=== PATIENT | female | born 1955 | race Caucasian/White ===

== ENCOUNTER 2022-01-02 15:22 | Emergency (ER) | payer OTHER ==
[~2022-01-02] VITALS: Ht 162.6 cm; Wt 62.0 kg
[2022-01-02] MEDS ORDERED: ONDANSETRON HCL 4MG/2ML INJ IV STA (15:51)
[2022-01-02] MEDS ORDERED: MORPHINE SULFATE 4 MG/ML CPJ (NOT FOR IM USE) IV STA (15:51)
[2022-01-02] MEDS ORDERED: SODIUM CHLORIDE 0.9% 1,000 ML IV ONE (16:00)
[2022-01-02] MEDS ORDERED: KETOROLAC 15MG/ML VIAL IV ONE (16:30)
[2022-01-02] MEDS ORDERED: ETOMIDATE 2MG/ML 10ML VIAL IV ONE (17:00)
[2022-01-02] MEDS ORDERED: MORPHINE SULFATE 4 MG/ML CPJ (NOT FOR IM USE) IV ONE (17:00)
[2022-01-02 17:05] LABS: CHLORIDE 103 mEq/L (98-107)
[2022-01-02 17:08] LABS: INR 0.9; PARTIAL THROMBOPLASTIN TIME < 21.0 sec (23.4-31.0); PROTHROMBIN TIME 9.7 sec (9.6-11.0)
[2022-01-02 19:04] LABS: HEMOGLOBIN. 12.5 g/dL (12.0-16.0); MEAN CORPUSCULAR VOLUME 82.3 fL (81.0-99.0); MEAN PLATELET VOLUME 9.8 fl (7.4-10.4); PLATELET 280 x1000/uL (130-400); RED BLOOD CELL COUNT 4.62 mill/uL (4.2-5.4); RED CELL DISTRIBUTION WIDTH 14.3 % (11.6-14.6)
[2022-01-02 20:11] LABS: PLATELET ESTIMATE NORMAL
[2022-01-02] MEDS ORDERED: HYDR-4001 MT (20:42)
[2022-01-02] MEDS ORDERED: IBUP-2028 MT (20:42)
[2022-01-02 21:50] VITALS: BP 121/69
== END 2022-01-02 22:45 | disposition home or self-care (01) ==
LOC: ER 15:22 → CANBEDREQ 01-03 06:59
DX: S93.05XA Dislocation of left ankle joint, initial encounter (principal); S82.832A Other fracture of upper and lower end of left fibula, initial encounter for closed fracture; S82.292A Other fracture of shaft of left tibia, initial encounter for closed fracture; R73.9 Hyperglycemia, unspecified; E78.00 Pure hypercholesterolemia, unspecified; W01.0XXA Fall on same level from slipping, tripping and stumbling without subsequent striking against object, initial encounter; Y93.89 Activity, other specified; Y92.89 Other specified places as the place of occurrence of the external cause; Z85.9 Personal history of malignant neoplasm, unspecified
CPT/HCPCS: 27840; 36415; 71045; 73590; 73600; 73610; 80053; 85025; 85610; 85730; 93005; 96361; 96374; 99152; 99285; J2270; J2405; J3490; J7030